=== PATIENT | female | born 1950 | race Caucasian/White ===

== ENCOUNTER 2016-07-21 12:19 | Inpatient (IN) | payer SELFPAY ==
[~2016-07-21] VITALS: Ht 154.9 cm; Wt 53.5 kg
[2016-07-21] MEDS ORDERED: SODIUM CHLORIDE 0.9% 1,000 ML IV ONE (12:31)
[2016-07-21 13:06] LABS: BASOPHILS % 1.3 % (0.0-2.0); EOSINOPHILS % 0.7 % (0.0-5.0); HEMATOCRIT. 42.6 % (36.0-48.0); HEMOGLOBIN. 13.7 g/dL (12.0-16.0); LYMPHOCYTES % 25.3 % (20.0-50.0); MEAN CORPUSCULAR HEMOGLOBIN 26.7 pg (28.0-32.0); MEAN CORPUSCULAR HGB CONC 32.3 g/dL (31.0-37.0); MEAN CORPUSCULAR VOLUME 82.9 fL (81.0-99.0); MEAN PLATELET VOLUME 8.6 fl (7.4-10.4); MONOCYTES % 6.7 % (2.0-8.0); PLATELET 389 x1000/uL (130-400); RED BLOOD CELL COUNT 5.14 mill/uL (4.2-5.4); RED CELL DISTRIBUTION WIDTH 13.8 % (11.6-14.6); WHITE BLOOD COUNT 14.2 x1000/uL (4.5-11.0)
[2016-07-21 13:13] LABS: CHLORIDE 103 mEq/L (98-107); INDEX HEMOLYSI 1 (1-3); INDEX ICTERIC 1 (1-4); INDEX LIPEMIC 1 (1-3)
[2016-07-21 13:14] LABS: PROTHROMBIN TIME 10.6 sec
[2016-07-21 13:17] LABS: AMMONIA 14 uMol/L (<32); INDEX HEMOLYSI 1 (1-3)
[2016-07-21 13:20] LABS: ALANINE AMINOTRANSFERASE 22 IU/L (13-61); ALBUMIN 4.1 g/dL (3.4-5.0); ANION GAP 12; CALCIUM 9.4 mg/dL (8.5-10.1); CARBON DIOXIDE 30 mEq/L (21-32); ETHANOL BLOOD < 10 mg/dL; UREA NITROGEN BLOOD 18 mg/dL (7-21); eGFR > 60 mL/min (>60)
[2016-07-21 13:24] LABS: TROPONIN I 0.07 ng/mL (0.00-0.04)
[2016-07-21 13:39] LABS: GLUCOSE URINE NEGATIVE (NEGATIVE); KETONES URINE 1+ (NEGATIVE); LEUKOCYTE ESTERASE URINE NEGATIVE (NEGATIVE); NITRITE URINE NEGATIVE (NEGATIVE); OCCULT BLOOD URINE NEGATIVE (NEGATIVE); PROTEIN URINE NEGATIVE (NEGATIVE); SPECIFIC GRAVITY URINE 1.012 (1.005-1.030); UROBILINOGEN URINE 0.2 E.U./dL (0.2-1.0)
[2016-07-21 13:40] LABS: CLARITY URINE CLEAR (CLEAR); COLOR URINE PALE YELLOW (YELLOW)
[2016-07-21 13:52] LABS: *AMPHETAMINES SCREEN URINE NEGATIVE (NEGATIVE); *BARBITURATES SCREEN URINE NEGATIVE (NEGATIVE); *BENZODIAZEPINES SCREEN URINE NEGATIVE (NEGATIVE); *COCAINE SCREEN URINE NEGATIVE (NEGATIVE); CANNABINOID URINE SCREEN NEGATIVE (NEGATIVE); ECSTASY MDMA SCREEN URINE NEGATIVE (NEGATIVE); METHADONE URINE SCREEN NEGATIVE (NEGATIVE); OPIATES URINE SCREEN NEGATIVE (NEGATIVE); PHENCYCLIDINE URINE SCREEN NEGATIVE (NEGATIVE)
[2016-07-21] MEDS ORDERED: ASPIRIN 325MG TABLET PO ONE (15:30)
[2016-07-21 17:10] VITALS: BP 150/92
[2016-07-21 17:50] VITALS: BP 150/92
[2016-07-21] MEDS ORDERED: NITROGLYCERIN 0.4MG TABLET SL SL PRN (18:15)
[2016-07-21] MEDS ORDERED: MAGNESIUM/ALUMINUM HYDROXIDE/SIMETHICONE 30ML UDC PO PRN (18:15)
[2016-07-21] MEDS ORDERED: ACETAMINOPHEN 325MG TABLET PO PRN (18:15)
[2016-07-21] MEDS ORDERED: KETOROLAC 15MG/ML VIAL IV PRN (18:15)
[2016-07-21] MEDS ORDERED: NA PHOS,M-B/NA PHOS,DI-BA ENEMA 118ML PR PRN (18:15)
[2016-07-21] MEDS ORDERED: ONDANSETRON HCL 4MG/2ML VIAL IV PRN (18:30)
[2016-07-21] MEDS ORDERED: IPRATROPIUM/ALBUTEROL 0.5-3(2.5)MG/3ML NEB INH PRN (18:30)
[2016-07-21] MEDS ORDERED: DOCUSATE SODIUM 100MG CAPSULE PO PRN (18:30)
[2016-07-21] MEDS ORDERED: GUAIFENESIN 200MG/10ML SUGAR FREE UDC PO PRN (19:00)
[2016-07-21] MEDS: ENOXAPARIN 40MG/0.4ML SYR SUBCUT SCH (19:00)
[2016-07-21] MEDS ORDERED: ZIPR80CA2 PO (19:59)
[2016-07-21 20:00] VITALS: BP 148/87
[2016-07-21] MEDS ORDERED: METF500T4 PO (20:00)
[2016-07-21] MEDS ORDERED: SIMV20TA6 PO (20:00)
[2016-07-21] MEDS ORDERED: METO-296 PO (20:01)
[2016-07-21 20:13] LABS: T4 FREE 1.32 ng/dL (0.76-1.46)
[2016-07-21 20:14] LABS: INDEX HEMOLYSI 1 (1-3)
[2016-07-21 20:15] LABS: THYROID STIMULATING HORMONE 0.97 uIU/mL (0.36-3.74)
[2016-07-21] MEDS ORDERED: DEXTROSE 50% WATER 50ML SYRINGE IV PRN (20:30)
[2016-07-21 20:31] LABS: VITAMIN B12 SERUM 444 pg/mL (211-911)
[2016-07-21 20:41] LABS: FOLIC ACID (FOLATE) SERUM > 20.00 ng/mL (>5.38)
[2016-07-21] MEDS: ASCORBIC ACID 500 MG TABLET PO SCH (20:45)
[2016-07-21] MEDS: METOPROLOL TARTRATE 25MG TABLET PO SCH (20:46)
[2016-07-21] MEDS: BLOOD SUGAR DIAGNOSTIC STRIP TEST SCH (20:50)
[2016-07-21] MEDS: INSULIN LISPRO 100 UNITS/ML SUBCUT SCH (20:50)
[2016-07-21] MEDS: DIPHENHYDRAMINE 50MG/ML VIAL IV PRN (21:13)
[2016-07-21 23:52] LABS: CREATINE KINASE MB FRACTION 1.7 ng/mL (0.5-3.6); TROPONIN I 0.05 ng/mL (0.00-0.04)
[2016-07-22] VITALS: BP 146/79
[2016-07-22] MEDS: DIPHENHYDRAMINE 50MG/ML VIAL IV PRN ×3 (01:14→14:53)
[2016-07-22 04:00] VITALS: BP 145/92
[2016-07-22] MEDS: BLOOD SUGAR DIAGNOSTIC STRIP TEST SCH ×4 (06:33→21:33)
[2016-07-22 06:45] LABS: CREATINE KINASE MB FRACTION 1.9 ng/mL (0.5-3.6); TROPONIN I 0.04 ng/mL (0.00-0.04)
[2016-07-22 08:00] VITALS: BP 157/98
[2016-07-22] MEDS: PANTOPRAZOLE SODIUM 40 MG/VIAL IV SCH (08:43)
[2016-07-22] MEDS: ASPIRIN 325MG EC TABLET PO SCH (08:43)
[2016-07-22] MEDS: ASCORBIC ACID 500 MG TABLET PO SCH ×2 (08:44→21:33)
[2016-07-22] MEDS: ZINC SULFATE 220 MG ( 50 ) CAPSULE PO SCH (08:44)
[2016-07-22] MEDS: METOPROLOL TARTRATE 25MG TABLET PO SCH ×2 (08:44→21:33)
[2016-07-22] MEDS: INSULIN LISPRO 100 UNITS/ML SUBCUT SCH ×4 (08:47→21:33)
[2016-07-22 12:00] VITALS: BP 136/89
[2016-07-22 16:00] VITALS: BP 97/60
[2016-07-22 17:22] LABS: BASOPHILS % 0.8 % (0.0-2.0); EOSINOPHILS % 0.7 % (0.0-5.0); HEMATOCRIT. 41.8 % (36.0-48.0); HEMOGLOBIN. 13.5 g/dL (12.0-16.0); LYMPHOCYTES % 26.2 % (20.0-50.0); MEAN CORPUSCULAR HEMOGLOBIN 26.7 pg (28.0-32.0); MEAN CORPUSCULAR HGB CONC 32.3 g/dL (31.0-37.0); MEAN CORPUSCULAR VOLUME 82.7 fL (81.0-99.0); MEAN PLATELET VOLUME 8.9 fl (7.4-10.4); MONOCYTES % 9.5 % (2.0-8.0); NEUTROPHILS % 62.8 % (40.0-76.0); PLATELET 417 x1000/uL (130-400); RED BLOOD CELL COUNT 5.06 mill/uL (4.2-5.4); RED CELL DISTRIBUTION WIDTH 13.8 % (11.6-14.6); WHITE BLOOD COUNT 13.8 x1000/uL (4.5-11.0)
[2016-07-22 17:47] LABS: ALANINE AMINOTRANSFERASE 18 IU/L (13-61); ALBUMIN 3.4 g/dL (3.4-5.0); ANION GAP 13; CALCIUM 9.1 mg/dL (8.5-10.1); CARBON DIOXIDE 26 mEq/L (21-32); CHLORIDE 108 mEq/L (98-107); INDEX HEMOLYSI 1 (1-3); INDEX ICTERIC 1 (1-4); INDEX LIPEMIC 1 (1-3); UREA NITROGEN BLOOD 20 mg/dL (7-21); eGFR > 60 mL/min (>60)
[2016-07-22] MEDS: ENOXAPARIN 40MG/0.4ML SYR SUBCUT SCH (17:56)
[2016-07-22 20:00] VITALS: BP 133/91
[2016-07-23] VITALS: BP 139/89
[2016-07-23 04:00] VITALS: BP 140/89
[2016-07-23] MEDS: BLOOD SUGAR DIAGNOSTIC STRIP TEST SCH ×4 (06:07→20:39)
[2016-07-23 09:46] VITALS: BP 127/99
[2016-07-23] MEDS: PANTOPRAZOLE SODIUM 40 MG/VIAL IV SCH (10:18)
[2016-07-23] MEDS: ASPIRIN 325MG EC TABLET PO SCH (10:18)
[2016-07-23] MEDS: ASCORBIC ACID 500 MG TABLET PO SCH ×2 (10:18→20:35)
[2016-07-23] MEDS: ZINC SULFATE 220 MG ( 50 ) CAPSULE PO SCH (10:18)
[2016-07-23] MEDS: METOPROLOL TARTRATE 25MG TABLET PO SCH ×2 (10:19→20:35)
[2016-07-23] MEDS: INSULIN LISPRO 100 UNITS/ML SUBCUT SCH ×4 (10:21→20:39)
[2016-07-23 12:00] VITALS: BP 144/76
[2016-07-23 16:00] VITALS: BP 165/81
[2016-07-23] MEDS: CLONIDINE 0.1MG TABLET PO PRN (18:01)
[2016-07-23] MEDS: ENOXAPARIN 40MG/0.4ML SYR SUBCUT SCH (18:03)
[2016-07-23 20:00] VITALS: BP 129/72
[2016-07-23] MEDS: DIPHENHYDRAMINE 50MG/ML VIAL IV PRN (20:26)
[2016-07-24] VITALS: BP 151/86
[2016-07-24] MEDS: ZOLPIDEM TARTRATE 5MG TABLET PO PRN ×2 (00:26→22:49)
[2016-07-24 04:00] VITALS: BP 159/109
[2016-07-24] MEDS: BLOOD SUGAR DIAGNOSTIC STRIP TEST SCH ×4 (07:20→20:40)
[2016-07-24 07:45] VITALS: BP 161/107
[2016-07-24] MEDS: ASCORBIC ACID 500 MG TABLET PO SCH ×2 (09:34→20:26)
[2016-07-24] MEDS: ASPIRIN 325MG EC TABLET PO SCH (09:35)
[2016-07-24] MEDS: ZINC SULFATE 220 MG ( 50 ) CAPSULE PO SCH (09:35)
[2016-07-24] MEDS: FAMOTIDINE 20MG TABLET PO SCH ×2 (09:35→16:33)
[2016-07-24] MEDS: METOPROLOL TARTRATE 25MG TABLET PO SCH ×2 (09:36→20:27)
[2016-07-24] MEDS: INSULIN LISPRO 100 UNITS/ML SUBCUT SCH ×4 (09:37→20:39)
[2016-07-24 12:00] VITALS: BP 165/93
[2016-07-24 15:48] VITALS: BP 117/86
[2016-07-24] MEDS: ENOXAPARIN 40MG/0.4ML SYR SUBCUT SCH (18:19)
[2016-07-24 20:00] VITALS: BP 135/76
[2016-07-24] MEDS: DIPHENHYDRAMINE 50MG/ML VIAL IV PRN (23:59)
[2016-07-25] MEDS: BLOOD SUGAR DIAGNOSTIC STRIP TEST SCH ×4 (07:20→20:26)
[2016-07-25] MEDS: INSULIN LISPRO 100 UNITS/ML SUBCUT SCH ×4 (07:50→20:26)
[2016-07-25 08:00] VITALS: BP 138/111
[2016-07-25] MEDS: ZINC SULFATE 220 MG ( 50 ) CAPSULE PO SCH (08:47)
[2016-07-25] MEDS: ASPIRIN 325MG EC TABLET PO SCH (08:47)
[2016-07-25] MEDS: FAMOTIDINE 20MG TABLET PO SCH ×2 (08:49→17:45)
[2016-07-25] MEDS: METOPROLOL TARTRATE 25MG TABLET PO SCH ×2 (08:49→20:26)
[2016-07-25] MEDS: ASCORBIC ACID 500 MG TABLET PO SCH ×2 (08:50→20:26)
[2016-07-25 12:00] VITALS: BP 151/100
[2016-07-25] MEDS: HALOPERIDOL LACTATE 5MG/ML VIAL IM PRN (14:59)
[2016-07-25 16:00] VITALS: BP 126/66
[2016-07-25] MEDS: ENOXAPARIN 40MG/0.4ML SYR SUBCUT SCH (18:35)
[2016-07-25 20:00] VITALS: BP 139/93
[2016-07-26] VITALS: BP 124/61
[2016-07-26] MEDS: ZOLPIDEM TARTRATE 5MG TABLET PO PRN (01:24)
[2016-07-26 04:00] VITALS: BP 119/80
[2016-07-26] MEDS: HALOPERIDOL LACTATE 5MG/ML VIAL IM PRN (05:23)
[2016-07-26] MEDS: BLOOD SUGAR DIAGNOSTIC STRIP TEST SCH ×4 (06:17→21:31)
[2016-07-26] MEDS: INSULIN LISPRO 100 UNITS/ML SUBCUT SCH ×4 (07:50→21:33)
[2016-07-26 08:00] VITALS: BP 107/61
[2016-07-26] MEDS: ASPIRIN 325MG EC TABLET PO SCH (09:11)
[2016-07-26] MEDS: ZINC SULFATE 220 MG ( 50 ) CAPSULE PO SCH (09:11)
[2016-07-26] MEDS: ASCORBIC ACID 500 MG TABLET PO SCH ×2 (09:12→21:31)
[2016-07-26] MEDS: METOPROLOL TARTRATE 25MG TABLET PO SCH ×2 (09:12→21:31)
[2016-07-26] MEDS: FAMOTIDINE 20MG TABLET PO SCH ×2 (09:12→18:03)
[2016-07-26 11:57] VITALS: BP 147/82
[2016-07-26 15:58] VITALS: BP 181/97
[2016-07-26] MEDS: OLANZAPINE 10MG TABLET PO SCH (16:07)
[2016-07-26] MEDS: ENOXAPARIN 40MG/0.4ML SYR SUBCUT SCH (18:04)
[2016-07-26] MEDS: CLONIDINE 0.1MG TABLET PO PRN (18:09)
[2016-07-26 20:00] VITALS: BP 144/83
[2016-07-26] MEDS: QUETIAPINE FUMARATE 25MG TABLET PO SCH (21:31)
[2016-07-27] VITALS (7 sets, daily range): BP systolic 99–145; BP diastolic 60–80
[2016-07-27] MEDS: HALOPERIDOL LACTATE 5MG/ML VIAL IM PRN (02:28)
[2016-07-27] MEDS: DIPHENHYDRAMINE 50MG/ML VIAL IV PRN (05:02)
[2016-07-27] MEDS: BLOOD SUGAR DIAGNOSTIC STRIP TEST SCH ×4 (05:50→20:34)
[2016-07-27 06:26] LABS: HEMATOCRIT 41.9 % (36.0-48.0); HEMOGLOBIN 13.5 g/dL (12.0-16.0); MEAN CORPUSCULAR HEMOGLOBIN 26.7 pg (28.0-32.0); MEAN CORPUSCULAR HGB CONC 32.3 g/dL (31.0-37.0); MEAN CORPUSCULAR VOLUME 82.6 fL (81.0-99.0); PLATELET 425 x1000/uL (130-400); RED BLOOD CELL COUNT 5.07 mill/uL (4.2-5.4); RED CELL DISTRIBUTION WIDTH 14.1 % (11.6-14.6); WHITE BLOOD COUNT 12.7 x1000/uL (4.5-11.0)
[2016-07-27] MEDS: METOPROLOL TARTRATE 25MG TABLET PO SCH ×2 (09:00→20:44)
[2016-07-27] MEDS: INSULIN LISPRO 100 UNITS/ML SUBCUT SCH ×4 (09:48→20:46)
[2016-07-27] MEDS: FAMOTIDINE 20MG TABLET PO SCH ×2 (09:49→17:11)
[2016-07-27] MEDS: QUETIAPINE FUMARATE 25MG TABLET PO SCH ×2 (09:49→20:44)
[2016-07-27] MEDS: ASPIRIN 325MG EC TABLET PO SCH (09:49)
[2016-07-27] MEDS: OLANZAPINE 10MG TABLET PO SCH (09:49)
[2016-07-27] MEDS: ZINC SULFATE 220 MG ( 50 ) CAPSULE PO SCH (09:49)
[2016-07-27] MEDS: ASCORBIC ACID 500 MG TABLET PO SCH ×2 (09:49→20:44)
[2016-07-27] MEDS: ENOXAPARIN 40MG/0.4ML SYR SUBCUT SCH (17:14)
[2016-07-28] VITALS: BP 140/81
[2016-07-28] MEDS: HALOPERIDOL LACTATE 5MG/ML VIAL IM PRN (03:28)
[2016-07-28 04:00] VITALS: BP 138/86
[2016-07-28] MEDS: BLOOD SUGAR DIAGNOSTIC STRIP TEST SCH ×4 (06:40→20:06)
[2016-07-28 08:00] VITALS: BP 154/85
[2016-07-28] MEDS: FAMOTIDINE 20MG TABLET PO SCH ×2 (08:47→18:24)
[2016-07-28] MEDS: ZINC SULFATE 220 MG ( 50 ) CAPSULE PO SCH (08:48)
[2016-07-28] MEDS: OLANZAPINE 10MG TABLET PO SCH (08:48)
[2016-07-28] MEDS: ASCORBIC ACID 500 MG TABLET PO SCH ×2 (08:48→20:02)
[2016-07-28] MEDS: ASPIRIN 325MG EC TABLET PO SCH (08:48)
[2016-07-28] MEDS: QUETIAPINE FUMARATE 25MG TABLET PO SCH (08:49)
[2016-07-28] MEDS: METOPROLOL TARTRATE 25MG TABLET PO SCH ×2 (08:50→20:02)
[2016-07-28] MEDS: INSULIN LISPRO 100 UNITS/ML SUBCUT SCH ×4 (08:57→20:06)
[2016-07-28 12:00] VITALS: BP 90/75
[2016-07-28 16:00] VITALS: BP 148/97
[2016-07-28] MEDS: ENOXAPARIN 40MG/0.4ML SYR SUBCUT SCH (18:24)
[2016-07-28 20:00] VITALS: BP 123/76
[2016-07-28] MEDS: QUETIAPINE FUMARATE 50MG TABLET PO SCH (20:02)
[2016-07-29] VITALS: BP 113/65
[2016-07-29 04:00] VITALS: BP 140/83
[2016-07-29] MEDS: HALOPERIDOL LACTATE 5MG/ML VIAL IM PRN (05:17)
[2016-07-29] MEDS: BLOOD SUGAR DIAGNOSTIC STRIP TEST SCH (06:36)
[2016-07-29] MEDS: INSULIN LISPRO 100 UNITS/ML SUBCUT SCH (07:50)
[2016-07-29 08:00] VITALS: BP 125/98
[2016-07-29] MEDS: QUETIAPINE FUMARATE 50MG TABLET PO SCH (09:29)
[2016-07-29] MEDS: FAMOTIDINE 20MG TABLET PO SCH (09:29)
[2016-07-29] MEDS: ZINC SULFATE 220 MG ( 50 ) CAPSULE PO SCH (09:29)
[2016-07-29] MEDS: ASCORBIC ACID 500 MG TABLET PO SCH (09:30)
[2016-07-29] MEDS: ASPIRIN 325MG EC TABLET PO SCH (09:30)
[2016-07-29] MEDS: OLANZAPINE 10MG TABLET PO SCH (09:30)
[2016-07-29] MEDS: METOPROLOL TARTRATE 25MG TABLET PO SCH (09:30)
[2016-07-29 12:00] VITALS: BP 107/58
[2016-07-29 12:26] VITALS: BP 107/58
== END 2016-07-29 14:50 | disposition home or self-care (01) | DRG 750 ==
LOC: ER 13:02 → 6WST 15:36
PROVIDERS: ADMIT Internal Medicine; ATTEND Internal Medicine
DX: F20.9 Schizophrenia, unspecified (principal); G93.40 Encephalopathy, unspecified; E11.9 Type 2 diabetes mellitus without complications; F31.9 Bipolar disorder, unspecified; D72.829 Elevated white blood cell count, unspecified
CPT/HCPCS: 36415; 70450; 71010; 80053; 80061; 80305; 81003; 82140; 82550; 82553; 82607; 82746; 82962; 83036; 83605; 84439; 84443; 84484; 85025; 85027; 85610; 93005; 93970; 96360; 96361; 99285; C9113; G0482; J1200; J1630; J1650; J1815; J7030